=== PATIENT | male | born 1980 | race Caucasian/White ===

== ENCOUNTER 2024-10-30 18:52 | Emergency (ER) | payer BC, SELFPAY ==
[2024-10-30 18:57] VITALS: BP 157/90
[2024-10-30 19:14] LABS: % Basophils 0.9 % (0-2); % Eosinophils 2.6 % (0-6); % Immature Granulocytes 0.1 % (0-0.5); % Lymphocytes 37.8 % (20.5-51.1); % Neutrophils 47.6 % (42.2-75.2); Absolute Basophils 0.1 10^3/uL (0-0.2); Absolute Eosinophils 0.2 10^3/uL (0-0.7); Absolute Lymphocytes 2.6 10^3/uL (1.2-3.4); Absolute Monocytes 0.8 10^3/uL (0.1-0.6); Absolute Neutrophils 3.3 10^3/uL (1.4-6.5); Hematocrit 51.5 % (39.0-52.0); Hemoglobin 18.4 g/dL (13.0-18.0); Mean Corp Hgb Conc. 35.7 g/dL (33.0-37.0); Mean Corpuscular Hgb 31.8 pg (27.0-31.0); Mean Corpuscular Volume 88.9 fL (80.0-94.0); Mean Platelet Volume 10.1 fL (7.4-10.4); Nucleated Red Blood Cells % 0 % (-); Platelet Count 228 10^3/uL (130-400); Red Blood Cell Count 5.79 10^6/uL (4.70-6.10); Red Cell Dist. Width 12.9 % (11.5-14.5); White Blood Cell Count 6.9 10^3/uL (4.8-10.8)
[2024-10-30 19:55] LABS: Blood Urea Nitrogen 8 mg/dl (9-20); Calcium 9.3 mg/dl (8.4-10.2); Carbon Dioxide 20 mmol/L (22-30); Chloride 109 mmol/L (98-107); Glucose 117 mg/dl (70-99); Sodium 140 mmol/L (135-145); eGFR > 60.00
[2024-10-30 21:53] VITALS: BP 124/84
--- NOTE | 2024-10-30 23:01 | ED.GENMED ---
History of Present Illness
General
Chief Complaint: Skin Problem
Source: patient
Exam Limitations: none
Time Seen by Provider: 10/30/24 23:00
Nursing documentation reviewed up to this point in time: agreed with
History of Present Illness
History of Present Illness:
Note:
CHIEF COMPLAINT(S)
Scalp lesion and abdominal pain.
HISTORY OF PRESENT ILLNESS
The patient is a 44-year-old male with a history of hypertension who presents with a scalp lesion and abdominal pain. The scalp lesion, described as a 'bump,' has been present for several months but recently started bleeding after he started to pick
at it. He also had an infected cyst on his abdomen and was previously treated at an urgent care and had the cyst drained and he was put on an antibiotic. He is concerned about the scar that remains. The patient reports night sweats and adverse
effects from the medication prescribed, leading to non-compliance. The lesion appears larger than at initial presentation, intermittently bleeds, and is tender to touch, particularly when manipulated by the patient. No recent procedural
interventions have been performed on the scalp area. The patient also reports a history of recurrent cysts throughout the body.
The abdominal pain is characterized as a 'stung pain' occurring in the lower abdomen, persisting over several months, with episodes of worsening pain this past week. The patient acknowledges a past medical history of gastritis and multiple gastric
ulcers. Current symptoms have been described as different from the previous ulcer-related pain. The patient mentions liquid stool, but denies solid stool irregularities, dark tarry stools, rectal bleeding, fever, chills, nausea, or vomiting. The
patient has not taken antibiotics recently and reports no prior abdominal surgeries.
The patient lacks an established primary care provider but is under cardiologic care for hypertension management.He does not see a sap trainer.
Currently, the abdomen pain has subsided but he states that in the waiting room he was very uncomfortable.
SOCIAL DETERMINANTS AFFECTING HEALTH
The patient reports a lack of a primary care provider, indicating potential barriers to healthcare access.
CHRONIC MEDICAL CONDITIONS SIGNIFICANTLY AFFECTING CARE
Chronic conditions affecting care: Hypertension
REVIEW OF SYSTEMS
see HPI
PHYSICAL EXAM
General: Patient is well appearing and in no acute distress; non-toxic
Skin: Small area of scar tissue noted to left lower abdomen with no erythema, no purulent drainage. 1 cm x 2 cm raised mass on the left posterior scalp
Head: Normocephalic, atraumatic
Eyes: Sclera non-icteric. EOMs intact.
Cardiac: Regular rate and rhythm
Pulm: Normal respiratory effort, no wheezes, rales, or rhonchi
Abdomen: Right sided abdominal tenderness to palpation, no palpable masses
Neuro: CN II-XII intact, no focal neurologic deficits.
Psychiatric: Appropriate mood and affect.
PLAN
- Order a CT scan of the abdomen to investigate the source of the abdominal pain, likely involving IV contrast to evaluate for different conditions
- Review pain management options, including consideration of non-opioid analgesics like Ketorolac.
- Consider addressing potential barriers to care by facilitating connection to a primary care provider.
DIFFERENTIAL DIAGNOSIS
The Differential Diagnosis includes, in no particular order and is not limited to:
1. Infected sebaceous cyst
2. Skin neoplasm
3. Diverticulitis
4. Peptic ulcer disease
5. Gastritis
6. Inflammatory bowel disease
7. Irritable bowel syndrome
8. Colorectal carcinoma
9. Skin abscess
10. Dermatofibroma
REVIEW OF PRIOR RECORDS
Reviewed ER physician augmentation from 03/10/2015, patient seen for discomfort in right upper extremity following coronary artery catheterization, he had a occlusion on ultrasound and he was set up to follow-up with Dr. Alaniz in the office.
Reviewed endoscopy procedure from 02/28/2015, patient seen for upper endoscopy and there was found to be esophagitis as well as moderate inflammation in the duodenum with duodenal ulcers
MDM/DISPOSITION
The patient is a 44-year-old male with a history of hypertension who presents with a scalp lesion and abdominal pain.
On exam, there is a small lump on the posterior scalp with thickening tissue overlying. Differentials include cyst/abscess/basal cell carcinoma. I discussed with patient that considering this lump on the back of his head has been going on for
months, I do not believe it represents an abscess or infected cyst or something that would be amenable to incision and drainage in the emergency department. Patient reports that he has not seen a sap trainer for this. I recommended urgent
dermatologic evaluation to potentially rule out causes of this including skin carcinoma.
Considering patient's abdominal pain, considering he does not have it at present, his blood work is unremarkable, and at home it seems to relieved with bowel movements, do not believe this represents an emergent pathology. Discussed with patient
that he can likely follow-up as an outpatient with his primary care provider or see gastroenterology as outpatient. Patient expresses concern and he wants to try to get to the cause of the issue today. Discussed that considering the nature of his
pain, CAT scan will likely not provide an answer to his symptoms. Nonetheless, patient states that he has been very uncomfortable this past week and wishes to proceed with the study.
CT scan reveals possible enteritis. Discussed findings with patient. Patient has been having diarrhea. Discussed how this is a self-limited condition. I also showed bladder wall thickening however patient has no urinary frequency, no burning
with urination, no dysuria. Patient states that he will follow-up with gastroenterology and he has an appointment to see his partners PCP to establish care. Patient stable for discharge.
Past History
Past History
ED Past Medical History: Other (PUD)
ED Past Surgical History: Other (Hernia repair)
Social History
Tobacco: Smoker
Alcohol: Occasional
Drug: Marijuana
Personal:
Living: with family
Family History
Family History: CAD
Review of Systems
Review of Systems
All Other Systems: ROS reviewed and negative except as documented in HPI and ROS
Phy Exam
Physical Exam
Physical Exam:
see hpi
Course
Orders/Labs/Results
Orders:
Orders
10/30/24 19:08
Basic Metabolic Panel Urgent
Comment: NO K
Complete Blood Count/With Diff Urgent
Lipase Urgent
10/30/24 23:14
Add On- LAB Urgent
Tests Added?: lipase, LFTs
10/31/24
CT Abd/pelvis W Iv Cont Urgent
Reason For Exam: right sided abdominal pain
10/31/24 00:51
Comprehensive Metabolic Panel Urgent
Abnormal Lab Results
10/30/24 10/31/24
19:08 00:51
Hgb 18.4 H g/dL
(13.0-18.0)
MCH 31.8 H pg
(27.0-31.0)
Absolute Monos (auto) 0.8 H 10^3/uL
(0.1-0.6)
Monocytes % 11.0 H %
(1.7-9.3)
Chloride 109 H mmol/L 110 H mmol/L
(98-107) (98-107)
Carbon Dioxide 20 L mmol/L 20 L mmol/L
(22-30) (22-30)
BUN 8 L mg/dl 7 L mg/dl
(9-20) (9-20)
Creatinine 0.6 L mg/dL 0.6 L mg/dL
(0.7-1.3) (0.7-1.3)
Glucose 117 H mg/dl
(70-99)
Lipase 372 H U/L
(23-300)
10/30/24 19:08
10/31/24 00:51
Vital Signs
Initial and Last Documented VS:
Initial Vital Signs
Temp Pulse Resp BP Pulse Ox
98.5 F 97 18 157/90 96
10/30/24 18:57 10/30/24 18:57 10/30/24 18:57 10/30/24 18:57 10/30/24 18:57
Last Documented Vital Signs
Temp Pulse Resp BP Pulse Ox
98.5 F 84 16 124/84 96
10/30/24 18:57 10/30/24 21:53 10/30/24 21:53 10/30/24 21:53 10/30/24 23:03
*Pulse Oximetry
SaO2: 96
Oxygen Mode of Delivery: Room air
Patient hypoxic: no
*Critical Care Note
Total Time (30-74mins, 75-104mins- exclusive of procedures): Not Applicable
ED Attending Note
-
Portions of this chart may have been created with voice recognition software.� Occasional wrong word or��sound alike� substitutions may have occurred due to the inherent limitations of voice recognition software.
Discharge Plan
Departure
Patient Disposition: Home (Routine Discharge)
Date of Disposition: 10/31/24
Time of Disposition: 01:35
Patient with high blood pressure during this ER visit?: Yes
Condition: Good
Discharge Problem:
Mass of scalp, Abdominal pain
Instructions: Skin lesion removal, Abdominal Pain, BLOOD PRESSURE
Prescriptions:
No Action
amlodipine 2.5 MG tablet
2.5 mg PO DAILY Qty: 30 3RF
aspirin 81 MG tablet,chewable
81 mg PO DAILY Qty: 0 0RF
omeprazole 40 MG capsule,delayed release(DR/EC)
40 mg PO DAILY Qty: 30 10RF
Rx Instructions:
Take in the morning before breakfast
nitroglycerin 0.4 MG tablet, sublingual
0.4 mg sublingual [id number] PRN (Reason: chest pain) Qty: 25 0RF
cephalexin 500 MG capsule
500 mg PO QID Qty: 28 0RF
Referrals:
NONE,* [Family Provider, Internal Medicine]
Malathi Gomez MD [Active, Gastroenterology] - Call in 1-3 days for appt
Shorty Barton MD [Consulting Staff, Dermatology] - Call in 1-3 days for appt
Activity Restrictions/Additional Instructions:
Please call attached number to follow-up with dermatology. You may need your lesion biopsied.
As discussed, your blood work and your CT scan is unremarkable.
Please continue to stay well-hydrated and please return to the emergency department should you develop chest pain, shortness of breath, acute worsening or symptoms, blood in your stool, dark tarry stools, fevers or chills, or any other signs or
symptoms worrisome to you.
Interventions
Interventions:
*Risk Screen - Suicide Last Done: 10/30/24 18:57
*General Assessment Last Done: 10/30/24 18:57
*Neglect/Abuse Screening Last Done: 10/30/24 18:57
*ED- Fall Risk Assessment Last Done: 10/30/24 23:43
*ED COVID-19 Vaccine History Last Done: 10/30/24 23:43
*Nursing Disposition Last Done: 10/31/24 01:53
ED-Skin Assessment Last Done: 10/31/24 01:51
Discharge Date and Time
Discharge Date/Time: 10/31/24 01:54
Print Language: SWEDISH
[2024-10-30 23:42] VITALS: BMI 34.5
[2024-10-31 00:23] LABS: Lipase 372 U/L (23-300)
[2024-10-31 01:26] LABS: ALT (SGPT) 45 U/L (0-50); AST (SGOT) 42 U/L (17-59); Alkaline Phosphatase 63 U/L (38-126); Blood Urea Nitrogen 7 mg/dl (9-20); Calcium 8.8 mg/dl (8.4-10.2); Carbon Dioxide 20 mmol/L (22-30); Chloride 110 mmol/L (98-107); Estimated Creatinine Clearance > 125 ml/min; Glucose 95 mg/dl (70-99); Potassium 4.2 mmol/L (3.5-5.1); Sodium 139 mmol/L (135-145); Total Bilirubin 0.5 mg/dl (0.2-1.3); Total Protein 6.8 g/dl (6.3-8.2); eGFR > 60.00
== END 2024-10-31 01:54 | disposition home or self-care (01) ==
LOC: EMR 18:52
PROVIDERS: Emergency Medicine; Physician Assistant; EMERGENCY PHYSICIAN Emergency Medicine
DX: R22.0 Localized swelling, mass and lump, head (principal); R10.9 Unspecified abdominal pain; I10 Essential (primary) hypertension; F17.200 Nicotine dependence, unspecified, uncomplicated; Z87.11 Personal history of peptic ulcer disease
CPT/HCPCS: 99284; 74177; 80048; 80053; 83690; 85025; Q9967

== ENCOUNTER 2025-01-01 06:35 | Day surgery (SDC) | payer BC, SELFPAY | END 2025-01-01 13:46 | disposition home or self-care (01) | LOC: GI 06:35 | PROVIDERS: ATTENDING PHYSICIAN Internal Medicine Gastroenterology | DX: R19.4 Change in bowel habit (principal); K57.30 Diverticulosis of large intestine without perforation or abscess without bleeding; R12 Heartburn; Z87.11 Personal history of peptic ulcer disease; R93.3 Abnormal findings on diagnostic imaging of other parts of digestive tract; R10.33 Periumbilical pain; K26.9 Duodenal ulcer, unspecified as acute or chronic, without hemorrhage or perforation; K31.89 Other diseases of stomach and duodenum; D12.5 Benign neoplasm of sigmoid colon; D12.3 Benign neoplasm of transverse colon | CPT/HCPCS: 45385; 43239; 88305; 88342 ==